=== PATIENT | female | born 1980 | race American Indian/Alaskan Native ===

== ENCOUNTER 2017-02-09 23:11 | Emergency (ER) | payer SELFPAY ==
[2017-02-10] MEDS ORDERED: CATAPRES ONE (01:16)
[2017-02-10] MEDS ORDERED: CATAPRES PO ONE (01:23)
[2017-02-10 02:28] VITALS: BP 152/105
[2017-02-10] MEDS ORDERED: DUONEB *Not for PRN Use IH ONE (02:44)
[2017-02-10] MEDS ORDERED: BENADRYL PO ONE (03:35)
[2017-02-10] MEDS ORDERED: DELTASONE PO ONE (03:35)
--- NOTE | 2017-02-10 03:51 | Emergency Department Report ---
HPI - General Chief Complaint: Adult Asthma Time Seen by Provider: 02/10/17 03:05 - HPI HPI: 36-year-old female with history of asthma presents to the ED complaining of wheezing 1 day. Patient states wheezing got worse today. She denies chest pain, shortness of breath couple fever, cough. Patient states she is to use her inhaler years ago but has not used an inhaler since then. ED Past Medical Hx - Past Medical History Hx Asthma: Yes - Social History Smoking Status: Never Smoker Substance Use Type: Alcohol - Medications Home Medications: Home Medications Medication Instructions Recorded Confirmed Last Taken Type ALBUTEROL Inhaler [ProAir HFA 2 puff IH QID PRN #1 pump 02/10/17 Unknown Rx Inhaler] Loratadine [Claritin] 10 mg PO DAILY #30 tablet 02/10/17 Unknown Rx amLODIPine [Norvasc] 5 mg PO DAILY #30 tab 02/10/17 Unknown Rx diphenhydrAMINE [Benadryl CAP] 50 mg PO QHS #30 capsule 02/10/17 Unknown Rx ED Review of Systems ROS: Stated complaint: ASTHMA Other details as noted in HPI Constitutional: denies: chills, fever Eyes: denies: eye pain, eye discharge, vision change ENT: denies: ear pain, throat pain Respiratory: denies: cough, shortness of breath, wheezing Cardiovascular: denies: chest pain, palpitations Endocrine: no symptoms reported Gastrointestinal: denies: abdominal pain, nausea, diarrhea Genitourinary: denies: urgency, dysuria, discharge Musculoskeletal: denies: back pain, joint swelling, arthralgia Skin: denies: rash, lesions Neurological: denies: headache, weakness, paresthesias Psychiatric: denies: anxiety, depression Hematological/Lymphatic: denies: easy bleeding, easy bruising Physical Exam - Physical Exam Vital Signs: Vital Signs 02/10/17 02/10/17 00:06 02:28 Temperature 98.7 F Pulse Rate 120 H Blood Pressure 197/117 152/105 [Left] Physical Exam: GENERAL: Alert and oriented x3, no apparent distress, Normal Gait, atraumatic. HEAD: Head is normocephalic and a-traumatic. EYES: Extra ocular muscles are intact. Pupils are equal, round, and reactive to light and accommodation. EARS: symetrical, atraumatic, non tender, ear canal clear and moderate cerumen, tympanic membrance non inflamed. gross auditory nml bilaterally. NOSE: Nose symetrical, Nontender,Nares appeared normal. MOUTH:Mouth is well hydrated and without lesions. Tonsils nonerythematous or swollen, Uvula midline, Tongue not elevated. Mucous membranes are moist. Posterior pharynx clear, no exudate or lesions. Patent airways. NECK: Supple. Non edematous, No lymphadenopathy or thyromegaly. No C-spine tenderness LUNGS: Symetrical with respiration, No wheezing, no rales or crackles, CTAB. No use of the sensory muscles HEART: S1, S2 present, regular rate and rhythm without murmur, no rubs, no gallops. Non tender to palpation ABDOMEN: No organomegaly was noted,Positive bowel sounds, soft, and non- distended. . Nontender to palpation on all Quadrants, NO CVA tenderness. BACK: Full range of motion, no spinal tenderness, nontender to palpation. SKIN: Warm and dry, No lesions, No ulceration or induration present. ED Course Vital Signs 02/10/17 02/10/17 00:06 02:28 Temperature 98.7 F Pulse Rate 120 H Blood Pressure 197/117 152/105 [Left] ED Medical Decision Making - Medical Decision Making 36-year-old female presents with asthma exacerbation ED course: Blood pressure seated in the ED stay patient was asymptomatic Clonidine 0.2 mg given to patient. Patient received DuoNeb respiratory treatment treatment. Patient reports feeling better after breathing treatment. Blood pressure which used prior to discharge. Discussed patient to take medication as prescribed. Discussed patient to follow up with primary care physician for management assessment of blood pressure. Discussed patient daily monitoring of blood pressure. Discussed that he gets the pressure medication to help reduce blood pressure. Discussed symptomatic or any other problems to return to ED Critical care attestation.: If time is entered above; I have spent that time in minutes in the direct care of this critically ill patient, excluding procedure time. ED Disposition Clinical Impression: Asthma exacerbation Disposition: DC-01 TO HOME OR SELFCARE Is pt being admited?: No Does the pt Need Aspirin: No Condition: Stable Instructions: Asthma (ED) Additional Instructions: Follow-up with primary care physician. Prescriptions: diphenhydrAMINE [Benadryl CAP] 50 mg PO QHS #30 capsule ALBUTEROL Inhaler [ProAir HFA Inhaler] 2 puff IH QID PRN #1 pump PRN Reason: Shortness Of Breath amLODIPine [Norvasc] 5 mg PO DAILY #30 tab Loratadine [Claritin] 10 mg PO DAILY #30 tablet Referrals: PRIMARY CARE, [Primary Care Provider] - 3-5 Days [facility] [Outside] - 3-5 Days [facility] [Outside] - 3-5 Days [facility] [Outside] - 3-5 Days Forms: Accompanied Note, Work/School Release Form(ED) Time of Disposition: 04:14
== END 2017-02-10 04:25 | disposition home or self-care (01) ==
LOC: ED 23:11
DX: J45.901 Unspecified asthma with (acute) exacerbation (principal)
CPT/HCPCS: 99282; J7512